=== PATIENT | female | born 1985 | race African-American/Black ===

== ENCOUNTER 2018-04-22 07:12 | Emergency (ER) | payer OTHER ==
[2018-04-22 07:27] VITALS: BP 118/64; PULSE 80; TEMP 98.3; BMI 36.9
[2018-04-22] MEDS ORDERED: LIDOCAINE HCL 1%, 10 MG/ML (50 mL VIAL) SQ ONE (08:15)
[2018-04-22] MEDS ORDERED: LIDOCAINE HCL 1%, 10 MG/ML (20ML VIAL) ONE (08:16)
[2018-04-22] MEDS ORDERED: LIDOCAINE HCL/PF 1% SDV 5ML VIAL ONE (08:21)
[2018-04-22] MEDS ORDERED: ACETAMINOPHEN 325 MG TABLET (FP) PO ONE (08:53)
[2018-04-22] MEDS ORDERED: ACETAMINOPHEN 650 MG/20.3 ML ORAL SOLUTION (CUPS) ONE (08:57)
[2018-04-22] MEDS ORDERED: BACITRACIN 0.9 GM PACKET ONE (08:58)
--- NOTE | 2018-04-22 08:58 | PDOC ---
History of Present Illness - General Chief Complaint: Edema Stated Complaint: RING FINGER SWALLOW Time Seen by Provider: 04/22/18 07:48 - History of Present Illness Initial Comments: 04/22/18 08:58 32yo F currently 31 weeks presents to the ED with her wedding ring stuck on her L 4th finger. Pt tried to use a string at home to pull it off unsuccessfully. Pt is asymptomatic otherwise, denies fevers, chills, cp/sob, abd pain, vag bleeding, dysuria, frequency. Past History - Past Medical History Allergies/Adverse Reactions: Allergies Allergy/AdvReac Type Severity Reaction Status Date / Time Penicillins Allergy Severe Itching Verified 04/22/18 07:25 NUTS Allergy Severe Swelling Uncoded 04/22/18 07:25 Home Medications: Ambulatory Orders Vitamins (Sjr) - 1 tab PO DAILY 10/27/13 Asthma: No Cancer: No Cardiac Disorders: No COPD: No Diabetes: No (gestational diabetes) HTN: No Seizures: No Thyroid Disease: No - Suicide/Smoking/Psychosocial Hx Smoking Status: No Smoking History: Never smoked Have you smoked in the past 12 months: No Number of Cigarettes Smoked Daily: 0 Information on smoking cessation initiated: No Hx Alcohol Use: No Drug/Substance Use Hx: No Hx Substance Use Treatment: No Review of Systems - Review of Systems Comments:: 04/22/18 09:02 GENERAL/CONSTITUTIONAL: No fever or chills. No weakness. HEAD, EYES, EARS, NOSE AND THROAT: No change in vision. No ear pain or discharge. No sore throat. GASTROINTESTINAL: No nausea, vomiting, diarrhea or constipation. GENITOURINARY: No dysuria, frequency, or change in urination. CARDIOVASCULAR: No chest pain or shortness of breath. RESPIRATORY: No cough, wheezing, or hemoptysis. MUSCULOSKELETAL: No joint or muscle swelling or pain. No neck or back pain. + ring stuck SKIN: No rash NEUROLOGIC: No headache, vertigo, loss of consciousness, or change in strength/ sensation. ENDOCRINE: No increased thirst. No abnormal weight change. HEMATOLOGIC/LYMPHATIC: No anemia, easy bleeding, or history of blood clots. ALLERGIC/IMMUNOLOGIC: No hives or skin allergy. *Physical Exam - Vital Signs Last Vital Signs Temp Pulse Resp BP Pulse Ox 98.3 F 80 18 118/64 99 04/22/18 07:22 04/22/18 07:22 04/22/18 07:22 04/22/18 07:22 04/22/18 07:22 - Physical Exam Comments: 04/22/18 09:02 GENERAL: Awake, alert, and fully oriented, in no acute distress HEAD: No signs of trauma EYES: PERRLA, EOMI, sclera anicteric, conjunctiva clear LUNGS: Breath sounds equal, clear to auscultation bilaterally. No wheezes, and no crackles HEART: Regular rate and rhythm, normal S1 and S2, no murmurs, rubs or gallops ABDOMEN: Soft, nontender, normoactive bowel sounds. No guarding, no rebound. No masses : gravid uterus, ~9-10cm above umbulicus EXTREMITIES: L 4th finger edematous with ring stuck in proximal phalynx. Normal ROM, no edema. NEUROLOGICAL: Normal speech, cranial nerves intact, equal strength b/l SKIN: Warm, Dry, normal turgor, no rashes or lesions noted. Procedures - Additional Procedures Progress: 04/22/18 09:04 2cc of 1% lido w/o epi injected to proximal phalynx with good response NRB O2 string wrapped snuggly around finger from distal to proximal Tip was passed under the ring with forceps End of string wrapped back out distally with removal of ring to middle phalynx lubricant applied, finger wrapped again and ring removed around wrapping Finger with some edema over middle phalynx, but NVI ED Treatment Course - Medications Given in the ED: ED Medications Discontinued Medications Generic Name Dose Route Start Last Admin Trade Name Dariusq PRN Reason Stop Dose Admin Lidocaine HCl 30 ml 04/22/18 08:15 04/22/18 08:29 Xylocaine 1% SQ 04/22/18 08:16 Not Given ONCE ONE Medical Decision Making - Medical Decision Making 04/22/18 09:21 32yo F 31 weeks presents with ring stuck. Ring successfully removed with NRB string. Finger is NVI. Tylenol give for pain Pt stable for DC home I discussed the physical exam findings and final diagnoses with the patient. I answered all of the patient's questions. The patient was satisfied with the care received and felt comfortable with the discharge plan and treatment plan. The patient will call their primary care physician within 24 hours to arrange follow-up and will return to the Emergency Department with any new, persistent or worsening symptoms. *DC/Admit/Observation/Transfer Diagnosis at time of Disposition: Ring or other jewelry causing external constriction, initial encounter - Discharge Dispostion Disposition: HOME Condition at time of disposition: Stable Decision to Admit order: No - Referrals Referrals: Carlyle Mcdonald MD [Primary Care Provider] - - Patient Instructions Additional Instructions: Follow up with your primary doctor within 1-2 days. Return to the emergency department if you have any new, worsening, or concerning symptoms. - Post Discharge Activity - Attestations Physician Attestion: 04/22/18 09:25 I, Dr. Aurelio Jean Baptiste MD, attest that this document has been prepared under my direction and personally reviewed by me in its entirety. I further attest, that it accurately reflects all work, treatment, procedures and medical decision -making performed by me.
== END 2018-04-22 09:44 | disposition home or self-care (01) ==
LOC: JER 07:12
DX: O99.89 Other specified diseases and conditions complicating pregnancy, childbirth and the puerperium (principal); S60.445A External constriction of left ring finger, initial encounter; W49.04XA Ring or other jewelry causing external constriction, initial encounter; Y93.89 Activity, other specified; Y92.038 Other place in apartment as the place of occurrence of the external cause; Y99.8 Other external cause status; Z3A.31 31 weeks gestation of pregnancy
CPT/HCPCS: 99282-25

== ENCOUNTER 2018-06-14 08:20 | Inpatient (IN) | payer OTHER ==
[2018-06-14] MEDS ORDERED: CITRIC ACID/SODIUM CITRATE 30 ML UNIT-DOSE CUP PO ONE (08:41)
[2018-06-14] MEDS ORDERED: ELECTROLYTE-148 SOLN 1,000 ML IV SCH (08:45)
--- NOTE | 2018-06-14 08:52 | HP ---
Past Medical History - Primary Care Physician PCP:: Brijesh Ortiz - Admission Chief Complaint: 39 WEEKS, PREVIOUS C/S, GESTATIONAL DM History of Present Illness: 32 YO F 39 WEEKS, WITH HX OF GDM, INSULIN REQUIRED, WITH PREVIOUSC/S REQUESTING REPEAT C/S, RBA DISCUSSED, CX CLP,VX -3MI, FHR CAT1 History Source: Patient Limitations to Obtaining History: No Limitations - Past Medical History ...: 5 ...Para: 2 ...Term: 2 ...: 0 ...Spon : 0 Endocrine: Yes: Diabetes Mellitus (was IDDM with last ) - Past Surgical History Past Surgical History: Yes: . No: None, AAA Repair, AICD, Amputation, Appendectomy, Arthrosocopy, AV Fistula/Graft, Bariatric Surgery, Breast Biopsy, Bypass, CABG, Carotid Endarterectomy, Cataract Removal, Cholecystectomy, Colectomy, Colonoscopy, Colostomy, Craniotomy, Cystectomy, Hernia Repair, Hysterectomy, Ileal Conduit, Ileosotomy, Joint Replacement, Kidney Transplant, Laminectomy, Liver Transplant, Mastectomy, Nephrectomy, Oopherectomy, Orchiectomy, Permanent Pacemaker, Prostatectomy, Splenectomy, Stent, Thoracotomy , TURP, Tonsillectomy, Tubal Ligation, Upper Endoscopy, Valve Replacement, Vasectomy, Vein Stripping/Ligation Hx Myomectomy: No Hx Transabdominal Cerclage: No Additional Surgical History: one previous c/s and vaginal delivery - Smoking History Smoking history: Never smoked Have you smoked in the past 12 months: No Aproximately how many cigarettes per day: 0 - Alcohol/Substance Use Hx Alcohol Use: No History of Substance Use: reports: None - Social History ADL: Independent 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 History of Recent Travel: No Home Medications - Allergies Allergies/Adverse Reactions: Allergies Allergy/AdvReac Type Severity Reaction Status Date / Time Penicillins Allergy Severe Itching Verified 04/22/18 07:25 NUTS Allergy Severe Swelling Uncoded 04/22/18 07:25 - Home Medications Home Medications: Ambulatory Orders Vitamins (Sjr) - 1 tab PO DAILY 10/27/13 Insulin (Levemir) [Levemir Vial] 16 unit SQ DAILY 04/22/18 Zantac 75 1 tab PO HS 06/14/18 Family Disease History - Family Disease History Family Disease History: Heart Disease: Father, Mother Review of Systems - Review of Systems Constitutional: reports: No Symptoms Eyes: reports: No Symptoms HENT: reports: No Symptoms Neck: reports: No Symptoms Respiratory: reports: No Symptoms Gastrointestinal: reports: No Symptoms Genitourinary: reports: No Symptoms Breasts: reports: No Symptoms Reported Musculoskeletal: reports: No Symptoms Integumentary: reports: No Symptoms Neurological: reports: No Symptoms Endocrine: reports: No Symptoms Hematology/Lymphatic: reports: No Symptoms Psychiatric: reports: No Symptoms Physical Exam - Maternity Constitutional: Yes: Well Nourished, No Distress, Calm Eyes: Yes: WNL, Conjunctiva Clear, EOM Intact HENT: Yes: WNL, Atraumatic, Normocephalic Neck: Yes: WNL, Supple, Trachea Midline Cardiovascular: Yes: WNL, Regular Rate and Rhythm Breast(s): Yes: WNL - Abdominal Exam/OB Fundal Height: 40 Number of Fetuses: Single Presentation: Vertex Contractions: Yes Regularity: Irritability Intensity: Unaware Monitor Mode: External Heart Rate Location: [facility] Category: I Accelerations: Uniform Decelerations: None - Vaginal Exam/OB Vaginal Bleediing: No Speculum Exam: No Dilatation (cm): CLOSED Effacement (%): 0 Amniotic Membrane Status: Intact Presentation: Vertex/Position Station: -3 - Physical Exam Musculoskeletal: Yes: WNL Extremities: Yes: WNL Edema: Yes Edema: LLE: 1+, RLE: 1+ Deep Tendon Reflex Grade: Normal +2 ...Motor Strength: WNL Psychiatric: Yes: WNL Hemorrhage Risk Assessment - Risk Factors Medium Risk Factors: Yes: Prior , uterine surgery,or multiple laparotomies Risk Score: 1 Risk Level: Medium Risk Problem List - Problems (1) with 39 completed weeks gestation Code(s): Z3A.39 - 39 WEEKS GESTATION OF (2) Previous section complicating Code(s): O34.219 - MATERNAL CARE FOR UNSP TYPE SCAR FROM PREVIOUS DEL (3) Diabetes in Code(s): O24.919 - UNSP DIABETES MELLITUS IN , UNSPECIFIED TRIMESTER Qualifiers: Diabetes in type: gestational Gestational diabetes mellitus control: insulin-controlled Trimester: third trimester Qualified Code(s): O24.414 - Gestational diabetes mellitus in , insulin controlled Assessment/Plan ADMIT FOR C/S, RISKS DISCUSSED , DISCUSSED
[2018-06-14 09:14] VITALS: BMI 39.6
[2018-06-14] MEDS ORDERED: OXYTOCIN 20 UNITS in 0.9% NS 20 UNIT/1,000 ML INFUS.BAG IV ONE ×2 (10:08→12:10)
[2018-06-14] MEDS ORDERED: ePHEDrine SULFATE 50 MG/1 ML AMPULE ONE (10:10)
[2018-06-14] MEDS ORDERED: PHENYLEPHRINE HCL 10 MG/1 ML SINGLE DOSE VIAL ONE (10:13)
[2018-06-14] MEDS ORDERED: morphine SULFATE/Preservative Free 0.5 MG/ML (1cc Syringe) ONE (10:20)
[2018-06-14] MEDS ORDERED: CLINDAMYCIN PHOSPHATE 600 MG/4 ML VIAL ONE (10:52)
[2018-06-14] MEDS ORDERED: oxyCODONE HCL 5 MG TABLET PO PRN (11:33)
[2018-06-14] MEDS ORDERED: METHYLERGONOVINE MALEATE 0.2 MG/1 ML AMP IM PRN (11:33)
[2018-06-14] MEDS ORDERED: OXYTOCIN 20 UNITS in 0.9% NS 20 UNIT/1,000 ML INFUS.BAG IV SCH (11:45)
[2018-06-14] MEDS ORDERED: ONDANSETRON 4 MG/2 ML VIAL IVPUSH PRN (12:17)
[2018-06-14] MEDS ORDERED: IBUPROFEN 800 MG/8 ML IJ IVPB ONE (13:31)
[2018-06-14] MEDS: IBUPROFEN 800 MG/8 ML IJ IVPB PRN ×2 (13:40→21:20)
[2018-06-14] MEDS: ACETAMINOPHEN 325 MG TABLET (FP) PO PRN (16:18)
[2018-06-14] MEDS: SIMETHICONE 80 MG TAB.CHEW (FP) PO PRN (16:19)
[2018-06-14] MEDS: FERROUS SO4 325 MG TABLET (FP) PO SCH (22:50)
--- NOTE | 2018-06-15 01:05 | PN ---
Post Progress Note - Subjective Subjective: Patient without acute complaints. Reports tolerating oral intake without nausea or vomiting. Ambulating without dizziness. Denies fevers or chills. Pain well controlled with oral pain medication. Pumping colostrum well rubio DC'd this AM, voiding well. Passing flatus. Post Day: 1 Type of Delivery: Repeat C/S Vital Signs: Vital Signs Temperature 98.2 F 06/15/18 00:35 Pulse Rate 74 06/15/18 00:35 Respiratory Rate 20 06/15/18 00:35 Blood Pressure 119/70 06/15/18 00:35 O2 Sat by Pulse Oximetry (%) 100 06/14/18 13:10 Breast Exam: Yes: Soft Uterus: Yes: Fundus Firm, Fundus below umbilicus Incision: Yes: Dressing dry and intact Abdomen/GI: Yes: Abdomen soft, Abdominal Distention (soft, mild), Tender ( incisional), Passing flatus, Tolerating PO Lochia: Yes: Serosa Lochia, amount: Small Extremities: Yes: Calves non-tender, Edema (trace) Activity: Ambulating Assessment/Plan 32 yo POD 3 1 s/p repeat CD, afebrile, vital signs stable, doing well 1. Continue routine postoperative care. 2. AM CBC without anemia 3. Rh negative; rhogam per protocol. 4. GDM - fasting glucose WNL, plan for regular diet 5. Encourage ambulation and incentive spirometer use 6. Continue oral pain medication 7. Anticipate discharge home postoperative day #3 or #4
[2018-06-15] MEDS: IBUPROFEN 800 MG/8 ML IJ IVPB PRN (05:09)
[2018-06-15] MEDS: ACETAMINOPHEN 325 MG TABLET (FP) PO PRN ×2 (07:58→12:41)
[2018-06-15] MEDS: SIMETHICONE 80 MG TAB.CHEW (FP) PO PRN ×3 (07:58→21:34)
[2018-06-15 08:34] LABS: BASO % 0.2 % (0-2.0); EOS % 0.6 % (0-4.5); HEMATOCRIT 36.8 % (32.4-45.2); HEMOGLOBIN 11.9 GM/dL (10.7-15.3); LYMPH % 17.3 % (8-40); MCH 30.7 pg (25.7-33.7); MCHC 32.4 g/dl (32.0-36.0); MEAN CELL VOLUME 94.8 fl (80-96); MEAN PLT VOLUME 7.8 fl (7.5-11.1); MONO % 8.3 % (3.8-10.2); NEUT % 73.6 % (42.8-82.8); PLATELET COUNT 164 K/MM3 (134-434); RBC 3.88 M/mm3 (3.60-5.2); RDW 12.9 % (11.6-15.6); WHITE BLOOD COUNT 8.5 K/mm3 (4.0-10.0)
[2018-06-15] MEDS: FERROUS SO4 325 MG TABLET (FP) PO SCH ×2 (10:30→21:35)
[2018-06-15] MEDS: PRENATAL VITAMINS W/ FOLIC ACID TABLET (FP) PO SCH (10:31)
[2018-06-15] MEDS: oxyCODONE HCL 5 MG TABLET PO PRN ×3 (10:32→21:36)
[2018-06-15] MEDS: ENOXAPARIN NA (PORCINE) 40 MG/0.4 ML DISP.SYRIN SQ SCH (10:35)
[2018-06-15] MEDS: IBUPROFEN 600 MG TABLET (FP) PO PRN ×3 (10:37→21:35)
[2018-06-15] MEDS: BISACODYL 10 MG SUPP.RECT RC PRN (12:40)
--- NOTE | 2018-06-15 13:30 | PN ---
Progress Note (short form) - Note Progress Note: Anesthesia POD#1 S/P Repeat under Spinal anesthesia VSS,no N/V,no itch,legs are strong. No Complications seen Arline Don MD.
[2018-06-15] MEDS: SENNOSIDES/DOCUSATE COMBO (SENNA PLUS) TABLET (UD) PO PRN (21:35)
[2018-06-16] MEDS: SIMETHICONE 80 MG TAB.CHEW (FP) PO PRN ×5 (02:40→20:04)
[2018-06-16] MEDS: oxyCODONE HCL 5 MG TABLET PO PRN (02:40)
[2018-06-16] MEDS: ACETAMINOPHEN 325 MG TABLET (FP) PO PRN ×5 (02:40→20:02)
[2018-06-16] MEDS: IBUPROFEN 600 MG TABLET (FP) PO PRN ×5 (02:40→20:04)
--- NOTE | 2018-06-16 07:08 | PN ---
Progress Note (short form) - Note Progress Note: pod 2 doing well, has gas pain, passing gas , had BM CBC, BMP 06/15/18 07:45 Last Vital Signs Temp Pulse Resp BP Pulse Ox 98.8 F 88 20 123/84 100 06/15/18 21:30 06/15/18 21:30 06/15/18 21:30 06/15/18 21:30 06/14/18 13:10 abdomen soft, no distension, no cva , BS present incision dry, clean no calf tenderness plan ambulate , cbc in am i Problem List - Problems (1) with 39 completed weeks gestation Code(s): Z3A.39 - 39 WEEKS GESTATION OF (2) Previous section complicating Code(s): O34.219 - MATERNAL CARE FOR UNSP TYPE SCAR FROM PREVIOUS DEL (3) Diabetes in Code(s): O24.919 - UNSP DIABETES MELLITUS IN , UNSPECIFIED TRIMESTER Qualifiers: Diabetes in type: gestational Gestational diabetes mellitus control: insulin-controlled Trimester: third trimester Qualified Code(s): O24.414 - Gestational diabetes mellitus in , insulin controlled
[2018-06-16] MEDS: FERROUS SO4 325 MG TABLET (FP) PO SCH ×2 (09:28→22:00)
[2018-06-16] MEDS: ENOXAPARIN NA (PORCINE) 40 MG/0.4 ML DISP.SYRIN SQ SCH (09:28)
[2018-06-16] MEDS: PRENATAL VITAMINS W/ FOLIC ACID TABLET (FP) PO SCH (09:28)
[2018-06-16] MEDS ORDERED: DIPHTH,PERTUSS(ACELL),TET 0.5 ML DISP.SYRIN IM ONE (10:00)
[2018-06-16] MEDS: BISACODYL 10 MG SUPP.RECT RC PRN (15:45)
[2018-06-16] MEDS: SENNOSIDES/DOCUSATE COMBO (SENNA PLUS) TABLET (UD) PO PRN (20:04)
--- NOTE | 2018-06-16 22:30 | OP ---
DATE OF OPERATION: 06/14/2018 PREOPERATIVE DIAGNOSES: at 39 weeks, previous section, request of repeat section. POSTOPERATIVE DIAGNOSES: at 39 weeks, previous section, request of repeat section. PROCEDURE: Repeat low segment transverse section. SURGEON: Sean Ortiz MD LEAK PATCHER: Kyra Wilcox MD ANESTHESIA: Spinal. ANESTHESIOLOGIST: Shaina Finley DO ESTIMATED BLOOD LOSS: 500 mL. OPERATION: Patient was taken to the operating room, and under adequate spinal anesthesia, abdomen and perineum was prepped and draped. Pfannenstiel abdominal skin incision was made. Abdominal wall was cut layer by layer until peritoneum was exposed and incised. Upon entering the abdominal cavity, lower uterine segment was identified, and urterovesical fold of peritoneum established. Bladder was pushed down. Then, a low transverse uterine incision was made. Incision extended laterally. Amniotic sac was entered. Clear fluid at the level of nasopharynx was suctioned, and live baby was delivered without any difficulty. Placenta was delivered manually. Uterine cavity was cleaned of all the remaining tissue. Uterine incision was closed in 2 layers with first layer with 0 Biosyn continuous suture and second layer with 0 Biosyn imbricating the first layer. Bladder flap was closed with 0 Biosyn continuously. Both tubes and ovaries were checked and normal. No active bleeding was seen. All the laparotomy pads, sponge, and instrument counts were correct. The peritoneum was closed with 0 Biosyn continuous suture. Muscles were brought together with interrupted suture of 0 Biosyn. Fascia was closed with 0 Biosyn continuous suture, subcutaneous fat with interrupted suture of 0 Biosyn, and the skin was closed with 4-0 Biosyn subcuticular continuous suture. The patient tolerated the procedure well, left the OR in good condition. SEAN ORTIZ M.D. [id number]
[2018-06-17] MEDS: IBUPROFEN 600 MG TABLET (FP) PO PRN ×3 (00:55→09:51)
[2018-06-17] MEDS: ACETAMINOPHEN 325 MG TABLET (FP) PO PRN ×3 (00:55→09:50)
[2018-06-17] MEDS: SIMETHICONE 80 MG TAB.CHEW (FP) PO PRN ×3 (00:55→09:50)
[2018-06-17] MEDS: oxyCODONE HCL 5 MG TABLET PO PRN (02:17)
[2018-06-17 08:23] LABS: BASO % 0.5 % (0-2.0); EOS % 0.9 % (0-4.5); HEMATOCRIT 32.7 % (32.4-45.2); HEMOGLOBIN 10.8 GM/dL (10.7-15.3); MCH 31.2 pg (25.7-33.7); MCHC 32.9 g/dl (32.0-36.0); MEAN CELL VOLUME 94.7 fl (80-96); MEAN PLT VOLUME 6.9 fl (7.5-11.1); MONO % 8.5 % (3.8-10.2); NEUT % 73.1 % (42.8-82.8); PLATELET COUNT 181 K/MM3 (134-434); RBC 3.45 M/mm3 (3.60-5.2); RDW 13.2 % (11.6-15.6); WHITE BLOOD COUNT 8.7 K/mm3 (4.0-10.0)
[2018-06-17] MEDS: FERROUS SO4 325 MG TABLET (FP) PO SCH (09:50)
[2018-06-17] MEDS: PRENATAL VITAMINS W/ FOLIC ACID TABLET (FP) PO SCH (09:50)
[2018-06-17] MEDS: ENOXAPARIN NA (PORCINE) 40 MG/0.4 ML DISP.SYRIN SQ SCH (11:10)
[2018-06-17 12:22] VITALS: BP 124/75; PULSE 73; TEMP 98
--- NOTE | 2018-06-18 08:46 | DS ---
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: Vital Signs Temperature 98.0 F 06/17/18 10:00 Pulse Rate 73 06/17/18 10:00 Respiratory Rate 20 06/17/18 10:00 Blood Pressure 124/75 06/17/18 10:00 O2 Sat by Pulse Oximetry (%) 100 06/14/18 13:10 Constitutional: Yes: Well Nourished, No Distress, Calm Eyes: Yes: WNL, Conjunctiva Clear, EOM Intact HENT: Yes: WNL, Atraumatic, Normocephalic Neck: Yes: WNL, Supple, Trachea Midline Cardiovascular: Yes: WNL, Regular Rate and Rhythm Respiratory: Yes: WNL, Regular, CTA Bilaterally Gastrointestinal: Yes: WNL ...Rectal Exam: Yes: WNL Renal/: Yes: WNL ....Post : Yes: Uterus firm, Uterus non-tender, Slight lochia rubra Breast(s): Yes: WNL Musculoskeletal: Yes: WNL Extremities: Yes: WNL Edema: No Integumentary: Yes: WNL Wound/Incision: Yes: Clean/Dry, Well Approximated, Sutures Intact Neurological: Yes: WNL, Alert, Oriented ...Motor Strength: WNL Psychiatric: Yes: WNL, Alert, Oriented Labs: CBC, BMP 06/17/18 08:00 Delivery - Delivery Section: Repeat, Low Flap Transverse (no complication) Type of Anesthesia: Spinal Episiotomy/Laceration: None EBL (cc): 500 Delivery, Single - Stages of Labor Date of Delivery: 06/14/18 Time of Delivery: 11:04 Time Placenta Delivered: 11:05 Placenta: Yes: Manual Removal - Condition of Infant Junior 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/Coat Check Attendant Present: Yes Name: Faith Mcrae Infant Gender: Female Weight: 5 lb 14 oz Position: Right, OT Total Hours ROM (Hrs/Mins): 2 mins - 1 Minute Total Score: 9 5 Minutes Total Score: 9 - [place] Feeding Plan Initial Plan: Elected not to breastfeed exclusively throughout hospitalization Discharge Summary Reason For Visit: Procedures: Principal: repeat LST c/s Condition: Good - Instructions Diet, Activity, Other Instructions: REGULAR DIET, FOLLOW UP OFFICE 1 WEEK, IF FEVER,PAIN, HEAVY VAGIANL BLEEDING CALL MD Referrals: Brijesh Ortiz MD [Staff Physician] - Disposition: HOME - Home Medications Comprehensive Discharge Medication List: Ambulatory Orders Vitamins (Sjr) - 1 tab PO DAILY 10/27/13 Insulin (Levemir) [Levemir Vial] 16 unit SQ DAILY 04/22/18 Zantac 75 1 tab PO HS 06/14/18 Ibuprofen [Motrin -] 600 mg PO QID #28 tablet 06/15/18
--- NOTE | 2018-06-23 16:54 | PATH ---
Surgical Pathology Report Patient Name: RICHI MONAHAN [facility]. Rec. 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 Specimen(s) Received PLACENTA Clinical History , 39.4 weeks term . x1, x1, miscarriage x1 For repeat and BTL Insulin dependent gestational diabetes Final Diagnosis PLACENTA, SECTION: 475 G THIRD TRIMESTER PLACENTA WITH TRIVASCULAR UMBILICAL CORD, FOCAL INTRAPARENCHYMAL INFARCT/HEMORRHAGE (LESS THAN 10% OF PLACENTAL SURFACE), AND UNREMARKABLE PLACENTAL MEMBRANES. Electronically Signed Felecia Mi M.D. Gross Description The specimen is received fresh labeled placenta and is a 475 gram, 14.0 x 13.0 x 3.3 cm. placenta with attached membranes and umbilical cord. The attached membranes are mroeno, translucent with focal opacities and insert marginally. The umbilical cord measures 30 cm. in length and averages 1 no cm. in diameter. The cord inserts eccentrically, 2.5 cm. to the nearest margin. No true knots or strictures are identified. Cut surface of the umbilical cord reveals 3 vessels. The surface is dooley-blue with minimal fibrin deposition and appropriate caliber vessels. The maternal surface is red-brown and intact. Sectioning reveals a 0.8 cm greatest dimension intraparenchymal lesion. The remaining placental parenchyma is red brown and spongy. Marketing Support Specialist sections are submitted in 4 cassettes as follows: 1-membrane roll and umbilical cord; 2-lesion; 3-4-full thickness sections of placenta. 06/22/2018 [facility]06/22/2018
== END 2018-06-17 12:00 | disposition home or self-care (01) | DRG 766 ==
LOC: JLDR 08:20 → J3W 13:55
PROVIDERS: ADMIT Obstetrics & Gynecology; ATTEND Obstetrics & Gynecology
PROC: 10D00Z1 Extraction of Products of Conception, Low, Open Approach (ICD-10-PCS; principal; 2018-06-14)
DX: O34.211 Maternal care for low transverse scar from previous cesarean delivery (principal); O24.414 Gestational diabetes mellitus in pregnancy, insulin controlled; Z37.0 Single live birth; Z3A.39 39 weeks gestation of pregnancy
CPT/HCPCS: 36415; 82962; 85025; 85461; 86999; 87389; 88307-TC; 90715; 94010

== ENCOUNTER 2023-06-21 04:46 | Day surgery (SDC) | payer OTHER ==
[2023-06-16 13:19] VITALS: BMI 37.3
[2023-06-21] MEDS ORDERED: ACETAMINOPHEN INJECTION 100 ML IVPB ONE ×2 (09:15→09:17)
[2023-06-21] MEDS ORDERED: ALBUTEROL SO4 HFA INHALER IH ONE (09:20)
[2023-06-21] MEDS ORDERED: ONDANSETRON 4 MG/2 ML VIAL ONE (09:20)
[2023-06-21] MEDS ORDERED: DEXAMETHASONE SOD PHOSPHATE 4 MG/1 ML VIAL ONE (09:20)
[2023-06-21] MEDS ORDERED: PROPOFOL 40 ML ONE (09:20)
[2023-06-21] MEDS ORDERED: MIDAZOLAM HCL 2 MG/2 ML SINGLE DOSE VIAL ONE (09:20)
[2023-06-21] MEDS ORDERED: oxyCODONE HCL 5 MG TABLET PO PRN (10:27)
[2023-06-21] MEDS ORDERED: LACTATED RINGERS SOLUTION 1,000 ML IV SCH (10:30)
[2023-06-21 12:24] VITALS: RESP 20
[2023-06-21 14:13] VITALS: BP 106/61; PULSE 61; TEMP 98.6
== END 2023-06-21 13:30 | disposition home or self-care (01) ==
LOC: JASU-SURG 04:46
PROVIDERS: ATTEND Obstetrics & Gynecology
PROC: 0UB98ZZ Excision of Uterus, Via Natural or Artificial Opening Endoscopic (ICD-10-PCS; principal; 2023-06-21 09:00)
PROC: 0UDB8ZZ Extraction of Endometrium, Via Natural or Artificial Opening Endoscopic (ICD-10-PCS; 2023-06-21 09:00)
DX: N84.0 Polyp of corpus uteri (principal); N92.6 Irregular menstruation, unspecified
CPT/HCPCS: 81025; 88305-TC; 94760